=== PATIENT | male | born 1970 | race Two or more races ===

== ENCOUNTER 2017-11-02 09:41 | Emergency (ER) | payer SELFPAY ==
[2017-11-02 09:49] VITALS: BP 156/99; PULSE 84; TEMP 98.9; BMI 32.8
--- NOTE | 2017-11-02 11:38 | PDOC ---
History of Present Illness - General Chief Complaint: Back Pain Stated Complaint: PAIN/ BACK, RT KNEE Time Seen by Provider: 11/02/17 11:22 History Source: Patient Exam Limitations: No Limitations - History of Present Illness Initial Comments: 11/02/17 11:42 Patient is here with complaints of right gluteal pain since Wednesday. Occurred: reports: last week Severity: reports: mild, moderate Pain Location: reports: back Modifying Factors: improves with: None Loss of Consciousness: no loss of consciousness Associated Symptoms (Fall): denies symptoms, trouble walking Past History - Travel Traveled outside of the country in the last 30 days: No Close contact w/someone who was outside of country & ill: No - Past Medical History Allergies/Adverse Reactions: Allergies Allergy/AdvReac Type Severity Reaction Status Date / Time No Known Allergies Allergy Verified 11/02/17 09:49 Home Medications: Ambulatory Orders Cyclobenzaprine HCl 10 mg PO Q8H PRN #14 tablet 11/02/17 Ibuprofen [Motrin -] 400 mg PO QID PRN #28 tablet 11/02/17 COPD: No Diabetes: No HTN: Yes (does not take meds) - Surgical History Abdominal Surgery: No - Suicide/Smoking/Psychosocial Hx Smoking Status: No Smoking History: Never smoked Number of Cigarettes Smoked Daily: 0 Information on smoking cessation initiated: No Hx Alcohol Use: No Drug/Substance Use Hx: No Substance Use Type: None Review of Systems - Review of Systems Able to Perform ROS?: Yes Is the patient limited Tuvaluan proficient: Yes Constitutional: Yes: Symptoms Reported, See HPI, Malaise. No: Fever HEENTM: Yes: See HPI. No: Symptoms Reported Respiratory: Yes: See HPI. No: Symptoms reported, Cough Musculoskeletal: Yes: Symptoms Reported, See HPI, Back Pain, Muscle Pain Integumentary: No: Symptoms Reported All Other Systems: Reviewed and Negative *Physical Exam - Vital Signs Last Vital Signs Temp Pulse Resp BP Pulse Ox 98.9 F 84 18 156/99 99 11/02/17 09:46 11/02/17 09:46 11/02/17 09:46 11/02/17 09:46 11/02/17 09:46 - Physical Exam General Appearance: Yes: Nourished, Appropriately Dressed, Apparent Distress HEENT: positive: LAURA, Normal ENT Inspection, TMs Normal, Pharynx Normal Neck: positive: Supple. negative: Lymphadenopathy (R), Lymphadenopathy (L) Respiratory/Chest: positive: Lungs Clear, Normal Breath Sounds Gastrointestinal/Abdominal: positive: Tender, Soft Musculoskeletal: positive: Normal Inspection. negative: CVA Tenderness Extremity: positive: Normal Capillary Refill, Normal Inspection, Normal Range of Motion Integumentary: positive: Normal Color, Dry, Warm, Pale Neurologic: positive: director shopper marketing II-XII NML intact, Fully Oriented, Alert, Normal Mood/ Affect, Normal Response, Motor Strength 5 Progress Note - Progress Note Progress Note: Muscle strain, will treat with NSAIDs and cyclobenzaprine *DC/Admit/Observation/Transfer Diagnosis at time of Disposition: back spasms - Discharge Dispostion Disposition: HOME Condition at time of disposition: Stable Admit: No - Prescriptions Prescriptions: Cyclobenzaprine HCl 10 mg PO Q8H PRN #14 tablet PRN Reason: spasm Ibuprofen [Motrin -] 400 mg PO QID PRN #28 tablet PRN Reason: Pain - Referrals Referrals: Marko Mclean MD [Primary Care Provider] - Aaron Dhillon MD [Staff Physician] - - Patient Instructions Printed Discharge Instructions: DI for Back Spasm Additional Instructions: Rest, no heavy lifting or exercise until pain is resolved Hot soaks to neck and low back as often as possible/hot showers or Jacuzzis No massage or therapy until spasm is gone Continue ibuprofen 2-200 mg tablets every 6 hours for the next 3 days then as needed for pain and swelling Cyclobenzaprine 1-10mg every 8 hours as needed for spasm If not significant improvement within 24 hours with medication and rest regime, followup with private physician for change in medications and /or therapy. - Post Discharge Activity Forms/Work/School Notes: Back to Work
== END 2017-11-02 12:35 | disposition home or self-care (01) ==
LOC: JERFT 09:41
DX: M62.830 Muscle spasm of back (principal)
CPT/HCPCS: 99281-25